=== PATIENT | female | born 1935 | race Caucasian/White ===

== ENCOUNTER 2025-03-06 16:39 | Emergency (ER) | payer MEDICARE, SELFPAY ==
[2025-03-06 16:50] VITALS: BP 134/60; PULSE 88; RESP 24; TEMP 36.6; O2SAT 95
--- NOTE | 2025-03-06 17:20 | ED_ITS ---
HPI - Wound/Laceration General Chief Complaint: Wound/Laceration Stated Complaint: Fall Injury/Right Arm Time Seen by Provider: 03/06/25 17:05 Source: patient, family, RN notes reviewed and old records reviewed Mode of arrival: ambulatory Limitations: no limitations History of Present Illness HPI narrative: 89 year old female accompanied by son and daughter with complaints of patient falling and son grabbed her arm to prevent fall causing skin tear to her right proximal forearm. Family states that home health was there to visit patient and they applied dressing to site and stated that they should take her to have it checked out. Patient is very frail and weak and has dementia and family cares for her at home. Daughter reports that she believes that tetanus is up to date. Onset (ago): hour(s) (within past hour prior to arrival) Extremity Location: Right: forearm Place: home Patient tetanus UTD: Yes Treatments prior to arrival: bandage Related Data Home Medications ?Medication ?Instructions ?Recorded ?Confirmed ?Last Taken ?Type donepezil 10 mg tablet mg 03/06/25 Unknown History memantine 5 mg tablet mg 03/06/25 Unknown History mirtazapine 15 mg disintegrating mg 03/06/25 Unknown History tablet potassium chloride 10 mEq meq 03/06/25 Unknown Histor y capsule,extended release quetiapine 25 mg tablet mg 03/06/25 Unknown History rosuvastatin 10 mg tablet mg 03/06/25 Unknown History Allergies Allergy/AdvReac Type Severity Reaction Status Date / Time codeine Allergy Nausea Verified 03/06/25 16:56 Review of Systems Review of Systems: CONSTITUTIONAL: Denies fever, chills, or sweats. CARDIOVASCULAR: Denies chest pain, palpitations, or edema. RESPIRATORY: Reports productive cough at times, no acute dyspnea patient has history of COPD SKIN: Reports skin tear to the proximal right forearm which occurred when son grabbed patient's arm to prevent fall. MUSCULOSKELETAL: Denies musculoskeletal pain NEUROLOGIC: Denies numbness, positive for weakness history of dementia. All systems reviewed & are unremarkable except as noted in HPI and below PMFSH Past Medical History Medical History (Updated 03/08/25 @ 07:55 by Michelle Kohler NP) Decrease in appetite Elevated cholesterol COPD (chronic obstructive pulmonary disease) Dementia Social History Social History (Updated 03/08/25 @ 07:56 by Michelle Kohler NP) Living arrangements: with family Gender identity (if verbalized by the patient): Female Comments At time of signature, agree with nursing past medical, surgical, social and family history. There is no relevant family history pertinent to the presenting complaint Exam Narrative: GENERAL:chronic ill-appearing, fair-nourished, and in no acute distress. HEAD: Normocephalic, atraumatic. NECK: Supple. no lymphadenopathy CHEST: decreased to auscultation. No respiratory distress.SAO2 95% on room air HEART: Regular rate and rhythm. No murmur heard. Normal peripheral pulses. EXTREMITIES: Normal range of motion. No edema. SKIN: Warm, dry, no rash. Reports 9cm X2cm skin tear to the proximal right forearm with partial upper skin layer present, minimal blood oozing from site, patient does report pain to area. Patient does have history of dementia is weak and has had recent falls in the past few months, appetite is decreased with patient frail. NEURO: No focal deficits. Alert and oriented x3, does have history of dementia Course Course Level of Care: Express Care Visit Vital Signs Vital signs: Vital Signs Temperature 36.6 C 03/06/25 16:50 Pulse Rate 88 03/06/25 16:50 Respiratory Rate 24 H 03/06/25 16:50 Blood Pressure 134/60 03/06/25 16:50 Pulse Oximetry 95 03/06/25 16:50 Oxygen Delivery Room Air 03/06/25 16:50 Temperature 36.6 C 03/06/25 16:50 Pulse Rate 88 03/06/25 16:50 Respiratory Rate 24 H 03/06/25 16:50 Blood Pressure 134/60 03/06/25 16:50 Pulse Oximetry 95 03/06/25 16:50 Oxygen Delivery Room Air 03/06/25 16:50 reviewed Procedures Other Procedure Procedure 1: Other Procedure: 1710 wound cleansed and irrigated and using sterile cotton tip applicator and some triple antibiotic ointment upper layer of skin placed over top of wound as best as could get it extend over wound bed. Vaseline gauze applied over wound and Telfa dressing and then Kerlix wrap and taped to secure with no tape to skin. Wound care reviewed with family. MDM - Wound/Laceration MDM Narrative Medical decision making narrative: Wound explored for foreign body and copious irrigation provided with no evidence of FB. Discussed the potential of retained foreign body with the patient and signs/symptoms that should prompt the patient to immediately go to the ED for reevaluation. The wound was explored and no foreign bodies were found. There was no evidence of tendon or nerve lacerations. . A sterile dressing was then applied and anticipatory guidance was provided. Tetanus prophylaxis was not given. Differential Diagnosis Differential diagnosis: Likely laceration, abrasion, avulsion of skin and other (skin tear to the right proximal forearm) Medical Records Attestation: I reviewed the patient's medical records. Critical Care Time Critical Care Time Critical Care Time: No Discharge Plan Discharge Clinical Impression: ISTAP type 2 skin tear of right forearm Patient Disposition: Home Condition: Stable Instructions: Antibiotic Form, Skin Tear (ED) Additional Instructions: Keep the area clean and dry No continuous water contact like dishes or swimming You may bathe and wash you hair caution with hair products or lotions watch for any infection--redness, swelling, drainage Do not change the Vaseline gauze next to skin change the Telfa and gauze every 48 hours, if Vaseline dressing becomes soiled and needs changed apply Bacitracin over Vaseline gauze and gently remove and reapply. recheck with PCP if further concerns or problems Antibiotic as prescribed till completed If your symptoms persist, change or worsen significantly before you can contact your personal physician then please, without delay, go to the emergency department for further evaluation. Follow-up with PCP in 7-10 days or sooner if needed Follow up with PCP soon in regards to your blood pressure which is elevated above threshold for referral. Blood pressure above 120/80 may indicate pre- hypertension.134/60 Patient Language: [place] Prescriptions: New cephalexin 250 mg/5 mL suspension for reconstitution 500 mg PO Q12H 7 Days Qty: 140 0RF No Action quetiapine 25 mg tablet potassium chloride 10 mEq capsule, extended release donepezil 10 mg tablet mirtazapine 15 mg tablet,disintegrating rosuvastatin 10 mg tablet memantine 5 mg tablet Follow-up/Referrals: Kam,Jerardo Ruiz MD [Primary Care Provider, Unknown] Time of Disposition: 17:30 Quality [place] Com[place] Scale Eyes: Open Verbal: Oriented and Alert Motor: Follows Commands [place] Coma Total Score: 15
== END 2025-03-06 17:51 | disposition home or self-care (01) ==
PROVIDERS: Emergency Provider Registered Nurse; PCP Internal Medicine
DX: S51.811A Laceration without foreign body of right forearm, initial encounter (principal); X58.XXXA Exposure to other specified factors, initial encounter; F03.90 Unspecified dementia, unspecified severity, without behavioral disturbance, psychotic disturbance, mood disturbance, and anxiety; E78.00 Pure hypercholesterolemia, unspecified; J44.9 Chronic obstructive pulmonary disease, unspecified
CPT/HCPCS: 99203; G0463